=== PATIENT | male | born 1980 | race African-American/Black ===

== ENCOUNTER 2024-01-09 18:39 | Emergency (ER) | payer BC ==
[2024-01-09 18:52] VITALS: BMI 26.3
[2024-01-09] MEDS ORDERED: ACETAMINOPHEN INJECTION 100 ML IVPB ONE (19:29)
[2024-01-09] MEDS: LACTATED RINGERS SOLUTION 1000 ML INFUS.BAG IV ONE ×2 (19:54→21:01)
[2024-01-09] MEDS: ACETAMINOPHEN 1000 MG/100 ML BAG IVPB ONE (19:54)
[2024-01-09 20:04] LABS: HEMATOCRIT 48.6 % (35.4-49); HEMOGLOBIN 17.4 GM/dL (11.7-16.9); MCH 31.7 pg (25.7-33.7); MCHC 35.7 g/dl (32.0-35.9); MEAN CELL VOLUME 88.7 fl (80-96); MEAN PLT VOLUME 8.1 fl (7.5-11.1); PLATELET COUNT 220 10^3/uL (134-434); RBC 5.49 M/mm3 (4.00-5.60); RDW 13.4 % (11.9-15.9); WHITE BLOOD COUNT 6.2 K/mm3 (4.0-10.0)
[2024-01-09 20:23] LABS: POTASSIUM 4.6 mmol/L (3.5-5.1)
[2024-01-09 20:25] LABS: CALCIUM 9.8 mg/dL (8.5-10.1)
[2024-01-09 20:26] LABS: ALBUMIN 4.4 g/dl (3.4-5.0); BLOOD UREA NITROGEN 12.6 mg/dL (7-18)
[2024-01-09 20:29] LABS: CREATININE 1.5 mg/dL (0.55-1.3)
[2024-01-09 20:31] LABS: BILIRUBIN,TOTAL 1.1 mg/dL (0.2-1); TOT PROT 8.8 g/dl (6.4-8.2)
[2024-01-09 21:02] LABS: EPI CELLS 11 /uL (0-25.1); HYALINE CASTS 0 /uL (0-3.1); PH,URINE 7.5 (5.0-8.0); URINE APPEARANCE CLEAR; URINE BACTERIA 4 /uL (0-1359); URINE BILIRUBIN NEGATIVE (NEGATIVE); URINE COLOR YELLOW; URINE GLUCOSE (UA) NEGATIVE (NEGATIVE); URINE KETONE TRACE (NEGATIVE); URINE LEUK ESTERASE TRACE (NEGATIVE); URINE NITRITE NEGATIVE (NEGATIVE); URINE PROTEIN 1+ (NEGATIVE); URINE RBC 74 /uL (0-23.9); URINE WBC 64 /uL (0-25.8)
[2024-01-09 21:27] VITALS: BP 114/73; PULSE 90; RESP 20; TEMP 99
== END 2024-01-09 21:28 | disposition home or self-care (01) ==
LOC: JERFT 18:39
PROC: 3E030NZ Introduction of Analgesics, Hypnotics, Sedatives into Peripheral Vein, Open Approach (ICD-10-PCS; principal; 2024-01-09)
DX: M79.602 Pain in left arm (principal); R50.9 Fever, unspecified; R53.81 Other malaise; R63.0 Anorexia; M79.10 Myalgia, unspecified site; R00.0 Tachycardia, unspecified; Z20.822 Contact with and (suspected) exposure to COVID-19
CPT/HCPCS: 0241U-QW; 36415; 73060-TC-LT-FY; 80053; 81003; 85027; 87040; 87086; 99285-25; J0131